=== PATIENT | male | born 1955 | race African-American/Black ===

== ENCOUNTER 2016-07-28 14:25 | Emergency (ER) | payer OTHER ==
[~2016-07-28] VITALS: Ht 172.7 cm; Wt 59.0 kg
[2016-07-28 15:41] LABS: PLATELET COUNT 231 K/uL (142-355)
== END 2016-07-28 16:40 | disposition home or self-care (01) ==
LOC: ED 14:25
PROVIDERS: Specialist
DX: J42 Unspecified chronic bronchitis (principal); X58.XXXA Exposure to other specified factors, initial encounter
CPT/HCPCS: 85027; 99283